=== PATIENT | female | born 1990 | race Caucasian/White ===

== ENCOUNTER 2023-10-06 02:25 | Inpatient (IN) | payer OTHER ==
[2023-10-06] MEDS: OXYTOCIN 20 UNITS in 0.9% NS 20 UNIT/1,000 ML INFUS.BAG IV SCH (03:05)
[2023-10-06] MEDS ORDERED: METHYLERGONOVINE MALEATE 0.2 MG/1 ML AMP IM PRN (03:29)
[2023-10-06] MEDS ORDERED: WITCH HAZEL 50% (TUCKS) 40 PAD/JAR PAD TP PRN (03:29)
[2023-10-06] MEDS ORDERED: BENZOCAINE 20% 57 GM BOTTLE TP PRN (03:29)
[2023-10-06] MEDS ORDERED: oxyCODONE HCL 5 MG TABLET PO PRN (03:29)
[2023-10-06] MEDS ORDERED: BENZOCAINE 28 GM HEMORRHOIDAL OINTMENT TP PRN (03:29)
[2023-10-06] MEDS ORDERED: ACETAMINOPHEN 325 MG TABLET (FP) PO PRN (03:29)
[2023-10-06] MEDS ORDERED: BISACODYL 10 MG SUPP.RECT RC PRN (03:29)
[2023-10-06 04:08] LABS: EOS % 1.9 % (0-4.5); HEMATOCRIT 32.3 % (32.4-45.2); HEMOGLOBIN 10.4 GM/dL (10.7-15.3); LYMPH % 21.4 % (8-40); MCH 23.2 pg (25.7-33.7); MCHC 32.2 g/dl (32.0-36.0); MEAN CELL VOLUME 71.8 fl (80-96); MEAN PLT VOLUME 10.2 fl (7.5-11.1); MONO % 5.4 % (3.8-10.2); NEUT % 70.3 % (42.8-82.8); PLATELET COUNT 238 10^3/uL (134-434); RBC 4.49 M/mm3 (3.60-5.2); RDW 19.8 % (11.6-15.6); WHITE BLOOD COUNT 8.1 K/mm3 (4.0-10.0)
[2023-10-06 04:11] LABS: EPI CELLS 14 /uL (0-25.1); HYALINE CASTS 0 /uL (0-3.1); PH,URINE 7.5 (5.0-8.0); URINE APPEARANCE CLEAR; URINE BACTERIA 21 /uL (0-1359); URINE BILIRUBIN NEGATIVE (NEGATIVE); URINE COLOR YELLOW; URINE GLUCOSE (UA) NEGATIVE (NEGATIVE); URINE KETONE NEGATIVE (NEGATIVE); URINE LEUK ESTERASE NEGATIVE (NEGATIVE); URINE NITRITE NEGATIVE (NEGATIVE); URINE PROTEIN 2+ (NEGATIVE); URINE RBC 21 /uL (0-23.9); URINE WBC 8 /uL (0-25.8)
[2023-10-06 04:14] LABS: INR 0.84 (0.83-1.09); PROTHROMBIN TIME (PATIENT) 9.8 SEC (9.7-13.0)
[2023-10-06 04:16] LABS: METHADONE, UR NEGATIVE (NEGATIVE); OPIATES, URI NEGATIVE (NEGATIVE); PHENCYCLIDINE,URINE NEGATIVE (NEGATIVE); URINE BENZODIAZEPINES NEGATIVE (NEGATIVE)
[2023-10-06 04:17] LABS: ACTIVATED PTT 28.7 SECONDS (25.2-36.5)
[2023-10-06 04:17] LABS: URINE BARBITURATES NEGATIVE (NEGATIVE)
[2023-10-06 04:25] LABS: POTASSIUM 3.8 mmol/L (3.5-5.1)
[2023-10-06 04:27] LABS: ALBUMIN 2.4 g/dl (3.4-5.0); CALCIUM 8.4 mg/dL (8.5-10.1)
[2023-10-06 04:28] LABS: BLOOD UREA NITROGEN 6.9 mg/dL (7-18)
[2023-10-06 04:31] LABS: CREATININE 0.6 mg/dL (0.55-1.3)
[2023-10-06 04:32] LABS: BILIRUBIN,TOTAL 0.9 mg/dL (0.2-1); TOT PROT 6.7 g/dl (6.4-8.2)
[2023-10-06 04:41] LABS: COCAINE, UR NEGATIVE (NEGATIVE); URINE AMPHETAMINES NEGATIVE (NEGATIVE)
[2023-10-06 05:06] VITALS: BMI 31.6
[2023-10-06 05:24] LABS: HIV INTERPRETATION NEGATIVE (NEGATIVE)
[2023-10-06] MEDS ORDERED: OXYTOCIN 20 UNITS in 0.9% NS 20 UNIT/1,000 ML INFUS.BAG IV ONE (05:38)
[2023-10-06] MEDS: OXYTOCIN 20 UNITS in 0.9% NS 20 UNIT/1,000 ML INFUS.BAG IV ONE (05:45)
[2023-10-06 06:26] VITALS: RESP 18
[2023-10-06 06:50] LABS: HEPATITIS B SURFACE AG MATERN NON-REACTIVE (NONREACTIVE)
[2023-10-06] MEDS: IBUPROFEN 600 MG TABLET (FP) PO PRN (10:09)
[2023-10-06] MEDS: FERROUS SO4 325 MG TABLET (FP) PO SCH (10:09)
[2023-10-06] MEDS: PRENATAL VITAMINS W/ FOLIC ACID TABLET (FP) PO SCH (10:10)
[2023-10-07 09:32] LABS: HEMATOCRIT 27.3 % (32.4-45.2); HEMOGLOBIN 8.6 GM/dL (10.7-15.3); MCHC 31.5 g/dl (32.0-36.0); MEAN PLT VOLUME 9.6 fl (7.5-11.1); PLATELET COUNT 253 10^3/uL (134-434); RBC 3.74 M/mm3 (3.60-5.2); RDW 19.6 % (11.6-15.6); WHITE BLOOD COUNT 12.5 K/mm3 (4.0-10.0)
[2023-10-07 10:29] LABS: ANISOCYTOSIS 1+; MACROCYTOSIS 1+
[2023-10-07 21:14] VITALS: BP 134/83; PULSE 106; TEMP 98.3
[2023-10-07] MEDS ORDERED: SENNOSIDES/DOCUSATE COMBO (SENNA PLUS) TABLET (UD) PO PRN (22:00)
== END 2023-10-07 23:40 | disposition home or self-care (01) | DRG 560 ==
LOC: JLDR 02:25 → J3W 05:44
PROVIDERS: ADMIT Obstetrics & Gynecology; ATTEND Obstetrics & Gynecology
PROC: 10E0XZZ Delivery of Products of Conception, External Approach (ICD-10-PCS; principal; 2023-10-06)
PROC: 0HQ9XZZ Repair Perineum Skin, External Approach (ICD-10-PCS; 2023-10-06)
DX: O62.3 Precipitate labor (principal); O70.0 First degree perineal laceration during delivery; Z3A.38 38 weeks gestation of pregnancy; Z37.0 Single live birth
CPT/HCPCS: 36415; 80053; 80307; 81003; 85025; 85610; 85730; 86780; 86850; 86900; 86901; 87340; 87389